=== PATIENT | female | born 1980 | race Asian ===

== ENCOUNTER 2019-03-27 22:11 | Emergency (ER) | payer MEDICAID ==
[~2019-03-27] VITALS: Ht 160 cm; Wt 57.0 kg
[~2019-03-27 22:11] MED LIST: HYDR10FO2 TOP; ONDA8TAB13 PO; PANT-47 PO
[2019-03-27 22:20] VITALS: BP 133/93
[2019-03-27] MEDS ORDERED: rabies immune globulin/PF 150 unit/ml inj IM ONE (23:15)
[2019-03-27] MEDS ORDERED: rabies vaccine (PCEC)/PF 2.5 unit kit IM ONE (23:15)
[2019-03-28] MEDS ORDERED: AMOX-580 PO (00:19)
[2019-03-28] MEDS ORDERED: L. R1CAP4 PO (00:19)
[2019-03-28] MEDS ORDERED: bacitracin 15gm ointment TP ONE (00:35)
== END 2019-03-28 01:00 | disposition home or self-care (01) ==
LOC: ER 22:12
DX: S60.371A Other superficial bite of right thumb, initial encounter (principal); W55.01XA Bitten by cat, initial encounter; Y93.89 Activity, other specified; Y92.89 Other specified places as the place of occurrence of the external cause; Y99.9 Unspecified external cause status
CPT/HCPCS: 90375; 90471; 90675; 96372; 99283